=== PATIENT | female | born 1950 | race Two or more races ===

== ENCOUNTER 2024-02-18 21:28 | Inpatient (IN) | payer MEDICARE, MEDICAID ==
[~2024-02-18] VITALS: Ht 162.6 cm; Wt 74.8 kg
[2024-02-18 21:36] VITALS: PULSE 65; RESP 17; O2SAT 100
[2024-02-18 21:46] LABS: Urine Bacteria None Seen /hpf (None Seen)
[2024-02-18 22:03] LABS: Amphetamine Screen, Urine Neg (NEGATIVE); Urine Blood Negative /uL (Negative); Urine Clarity Clear (Clear); Urine Color Light-Yellow (Yellow); Urine Hyaline Cast FEW /lpf (0 - 2); Urine Protein, UAD Negative (Negative); Urine Specific Gravity 1.016 (1.001-1.035); Urine Urobilinogen Normal (Negative); Urine WBC 1 /hpf (0 - 5); Urine pH 6.5 (5.0-9.0)
[2024-02-18 22:04] LABS: Barbiturate Scree,Urine Neg (NEGATIVE); Benzodiazephine Screen, Urine Neg (NEGATIVE); Cannabinoid Screen, Urine Neg (NEGATIVE); Cocaine Screen, Urine Neg (NEGATIVE); Opiate Scree,Urine Neg (NEGATIVE); Phencyclidine Screen, Urine Neg (NEGATIVE)
[2024-02-18 22:19] LABS: Basophils # (auto) 0 10 ^3/uL (0-0.2); Basophils % (auto) 0.3 % (0.0-2.0); Eosinophils # (auto) 0.2 10 ^3/uL (0-0.8); Eosinophils % (auto) 2.9 % (0.0-7.0); Hematocrit 36.6 % (36.0-46.0); Hemoglobin 11.9 g/dL (12.2-16.2); Lymphocytes # (auto) 1.8 10 ^3/uL (0.4-5.4); Lymphocytes % (auto) 21.5 % (10.0-50.0); Mean Corpuscular Hemoglobin 29.3 pg (28.0-32.0); Mean Corpuscular Hgb Conc. 32.6 g/dL (32.0-36.0); Mean Corpuscular Volume 90.1 fL (80.0-100.0); Monocytes # (auto) 0.6 10 ^3/uL (0-1.3); Monocytes % (auto) 6.6 % (0.0-12.0); Neutrophils # (auto) 5.7 10 ^3/uL (1.6-8.6); Neutrophils % (auto) 68.7 % (37.0-80.0); Nucleated Red Blood Cells % 0.1 %; Red Blood Cells 4.06 10^6/uL (4.0-5.20); Red Cell Distribution Width 14.1 % (11.8-14.3); White Blood Cell 8.3 10^3/uL (4.4-10.8)
[2024-02-18 22:36] LABS: Alanine Aminotransferase 11 U/L (7-40); Albumin 4.1 g/dL (3.2-4.8); Alkaline Phosphatase 70 U/L (46-116); Anion Gap 7 (5-15); Aspartate Aminotransferase 15 U/L (13-40); BUN/Creatinine Ratio 16.9 (10.0-20.0); Blood Alcohol < 3.0 mg/dL (<10); Blood Urea Nitrogen 24 mg/dL (9-23); Calcium 9.3 mg/dL (8.5-10.1); Carbon Dioxide 27 mmol/L (20-30); Chloride 104 mmol/L (98-107); Glucose 240 mg/dL (74-106); Potassium 3.9 mmol/L (3.5-5.1); Sodium 138 mmol/L (136-145)
[2024-02-18 22:37] LABS: Bilirubin, Total 0.4 mg/dL (0.2-1.0); Total Protein 6.4 g/dL (5.7-8.2)
[2024-02-18 22:39] LABS: Partial Thromboplastin Time 22.7 SEC (24.5-34.5); Prothrombin Time 10.6 sec (9.3-11.8)
[2024-02-19] MEDS ORDERED: ONDANSETRON HCL 4 MG/2 ML VIAL IV PRN (03:00)
[2024-02-19] MEDS ORDERED: DEXTROSE (50%) 50ML SYRG IV PRN (03:00)
[2024-02-19] MEDS ORDERED: HYDROcodone-ACET 5/325MG TAB PO PRN (03:00)
[2024-02-19] MEDS ORDERED: hydrALAZINE HCL 20 MG/ML VL IV PRN (03:00)
[2024-02-19] MEDS: ASPirin 81 mg TAB PO ONE (03:35)
[2024-02-19 03:49] LABS: Basophils # (auto) 0 10 ^3/uL (0-0.2); Basophils % (auto) 0.5 % (0.0-2.0); Eosinophils # (auto) 0.2 10 ^3/uL (0-0.8); Eosinophils % (auto) 2.8 % (0.0-7.0); Hematocrit 36.2 % (36.0-46.0); Hemoglobin 11.9 g/dL (12.2-16.2); Lymphocytes # (auto) 2.6 10 ^3/uL (0.4-5.4); Lymphocytes % (auto) 32.3 % (10.0-50.0); Mean Corpuscular Hgb Conc. 32.9 g/dL (32.0-36.0); Monocytes # (auto) 0.7 10 ^3/uL (0-1.3); Monocytes % (auto) 8.4 % (0.0-12.0); Neutrophils # (auto) 4.5 10 ^3/uL (1.6-8.6); Red Blood Cells 4.11 10^6/uL (4.0-5.20); Red Cell Distribution Width 14.5 % (11.8-14.3)
[2024-02-19] MEDS ORDERED: MORPHINE SULFATE INJ 2 MG/ml SYRG IV PRN (04:15)
[2024-02-19] MEDS ORDERED: NITROGLYCERIN 0.4 MG SL TAB SL PRN (04:15)
[2024-02-19 04:32] LABS: Alkaline Phosphatase 65 U/L (46-116); Anion Gap 7 (5-15); Aspartate Aminotransferase 13 U/L (13-40); BUN/Creatinine Ratio 23.3 (10.0-20.0); Blood Urea Nitrogen 27 mg/dL (9-23); Calcium 9.7 mg/dL (8.7-10.4); Carbon Dioxide 27 mmol/L (20-30); Chloride 106 mmol/L (98-107); Glucose 123 mg/dL (74-106); Potassium 3.6 mmol/L (3.5-5.1); Sodium 140 mmol/L (136-145)
[2024-02-19 04:33] LABS: Bilirubin, Total 0.4 mg/dL (0.2-1.0); Total Protein 6.2 g/dL (5.7-8.2)
[2024-02-19 04:40] LABS: Alanine Aminotransferase < 9 U/L (7-40)
[2024-02-19] MEDS: SODIUM CHLOR 0.9% PF (SALINE LOCK) 10ML VIAL/SYR IV SCH (06:13)
[2024-02-19] MEDS: InsuLIN REG 1unit/0.01ml Soln (100units/ml) SC SCH ×2 (07:00→21:23)
[2024-02-19] MEDS: ACCU-CHEK COMFORT CURVE STRIP VI SCH (07:01)
[2024-02-19 09:32] VITALS: BP 112/44; PULSE 62; RESP 20; TEMP 98.3; O2SAT 98
[2024-02-19] MEDS: ASPirin 81 mg TAB PO SCH (11:46)
[2024-02-19] MEDS ORDERED: LOSA100T25 PO (12:59)
[2024-02-19] MEDS ORDERED: SITA50TA28 PO (12:59)
[2024-02-19] MEDS ORDERED: CYAN-17 PO (12:59)
[2024-02-19] MEDS ORDERED: GENT0.1C3 EX (12:59)
[2024-02-19] MEDS ORDERED: EMPA1TAB3 PO (12:59)
[2024-02-19] MEDS ORDERED: GABA-1250 PO (12:59)
[2024-02-19] MEDS ORDERED: FOLITAB22 PO (12:59)
[2024-02-19] MEDS ORDERED: CHOL500046 PO (12:59)
[2024-02-19 13:00] VITALS: BP 130/42; PULSE 62; RESP 18; TEMP 98; O2SAT 99
[2024-02-19 17:33] VITALS: BP 130/53; PULSE 63; RESP 20; TEMP 98.6; O2SAT 95
[2024-02-19 20:30] VITALS: PULSE 60; PULSE 64; RESP 18; O2SAT 100
[2024-02-19 21:01] VITALS: BP 127/55; PULSE 64; RESP 18; TEMP 98.1; O2SAT 100
[2024-02-20] VITALS (9 sets, daily range): BP systolic 115–142; BP diastolic 47–69; PULSE 61–68; RESP 17–20; TEMP 97.4–98.2; O2SAT 92–98
[2024-02-20 06:20] LABS: Basophils # (auto) 0 10 ^3/uL (0-0.2); Basophils % (auto) 0.3 % (0.0-2.0); Eosinophils # (auto) 0.3 10 ^3/uL (0-0.8); Hematocrit 38.4 % (36.0-46.0); Hemoglobin 12.8 g/dL (12.2-16.2); Mean Corpuscular Hgb Conc. 33.5 g/dL (32.0-36.0); Mean Corpuscular Volume 89.5 fL (80.0-100.0); Monocytes # (auto) 0.6 10 ^3/uL (0-1.3); Neutrophils # (auto) 5.1 10 ^3/uL (1.6-8.6); Neutrophils % (auto) 62.7 % (37.0-80.0); Red Blood Cells 4.29 10^6/uL (4.0-5.20); Red Cell Distribution Width 14.1 % (11.8-14.3); White Blood Cell 8.1 10^3/uL (4.4-10.8)
[2024-02-20 06:42] LABS: Albumin 4.2 g/dL (3.2-4.8); Alkaline Phosphatase 70 U/L (46-116); Anion Gap 8 (5-15); Aspartate Aminotransferase 12 U/L (13-40); Blood Urea Nitrogen 24 mg/dL (9-23); Carbon Dioxide 26 mmol/L (20-30); Chloride 105 mmol/L (98-107); Glucose 154 mg/dL (74-106); Potassium 3.9 mmol/L (3.5-5.1); Sodium 139 mmol/L (136-145)
[2024-02-20 06:43] LABS: Alanine Aminotransferase < 9 U/L (7-40); Bilirubin, Total 0.4 mg/dL (0.2-1.0); Phosphorus 3.7 mg/dL (2.4-5.1); Total Protein 6.7 g/dL (5.7-8.2)
[2024-02-20] MEDS ORDERED: LORazepam 2MG/ML-1ML VIAL IV PRN (19:30)
[2024-02-20 19:51] LABS: LDL Cholesterol 74 mg/dL (< 100); Triglycerides 119 mg/dL (< 150)
[2024-02-20 19:53] LABS: Cholesterol 168 mg/dL (< 200); HDL Cholesterol 69 mg/dL (40-59)
[2024-02-20] MEDS: ACETAMINOPHEN 325 MG TAB PO PRN (21:13)
[2024-02-20 22:31] LABS: Urine Bacteria FEW /hpf (None Seen); Urine Blood 3+ /uL (Negative); Urine Budding Yeast OCCASIONAL /hpf (None Seen); Urine Clarity Clear (Clear); Urine Color Light-Yellow (Yellow); Urine Protein, UAD Negative (Negative); Urine Specific Gravity 1.019 (1.001-1.035); Urine Urobilinogen Normal (Negative); Urine WBC 9 /hpf (0 - 5); Urine pH 5.5 (5.0-9.0)
[2024-02-20 22:41] LABS: Protein, Urine 16.3 mg/dL (0.0-11.9)
[2024-02-20 22:44] LABS: Creatinine, Urine 48.92 mg/dL (30.0-125.0)
[2024-02-21] VITALS (7 sets, daily range): BP systolic 120–147; BP diastolic 50–89; PULSE 60–65; RESP 18–19; TEMP 97.9–98.7; O2SAT 95–97
[2024-02-21 11:40] LABS: Chloride 102 mmol/L (98-107); Potassium 3.8 mmol/L (3.5-5.1); Sodium 138 mmol/L (136-145)
[2024-02-21 11:41] LABS: Anion Gap 7 (5-15); Carbon Dioxide 29 mmol/L (20-30)
[2024-02-21 11:42] LABS: Calcium 9.9 mg/dL (8.5-10.1)
[2024-02-21 11:47] LABS: BUN/Creatinine Ratio 21.6 (10.0-20.0); Blood Urea Nitrogen 19 mg/dL (9-23); Glucose 182 mg/dL (74-106)
[2024-02-21] MEDS: DOCUSATE SOD 100 MG CAP PO PRN (21:07)
[2024-02-22 01:27] VITALS: BP 114/51; PULSE 65; RESP 18; TEMP 98.4; O2SAT 99
[2024-02-22 05:00] VITALS: BP 106/64; PULSE 60; RESP 19; TEMP 98.7; O2SAT 94
[2024-02-22 07:08] LABS: Anion Gap 10 (5-15); Carbon Dioxide 25 mmol/L (20-30); Chloride 102 mmol/L (98-107); Potassium 3.7 mmol/L (3.5-5.1); Sodium 137 mmol/L (136-145)
[2024-02-22 07:14] LABS: Glucose 152 mg/dL (74-106)
[2024-02-22 07:25] LABS: BUN/Creatinine Ratio 24.7 (10.0-20.0); Blood Urea Nitrogen 22 mg/dL (9-23)
[2024-02-22 08:00] VITALS: PULSE 63
[2024-02-22 09:00] VITALS: BP 133/62; PULSE 63; RESP 20; TEMP 98.3; O2SAT 94
== END 2024-02-22 19:30 | disposition home or self-care (01) | DRG 682 ==
LOC: EDBD 21:28 → ER 21:32 → TELE 02-19 04:04 → TELE-EAST 02-19 09:02 → TELE-E-ADS 02-22 15:24
PROVIDERS: ADMIT Nurse Practitioner Family; ATTEND Family Medicine
DX: N17.0 Acute kidney failure with tubular necrosis (principal); G93.41 Metabolic encephalopathy; I69.351 Hemiplegia and hemiparesis following cerebral infarction affecting right dominant side; E44.0 Moderate protein-calorie malnutrition; I69.354 Hemiplegia and hemiparesis following cerebral infarction affecting left non-dominant side; E86.0 Dehydration; E11.65 Type 2 diabetes mellitus with hyperglycemia; N18.31 Chronic kidney disease, stage 3a; E11.22 Type 2 diabetes mellitus with diabetic chronic kidney disease; I12.9 Hypertensive chronic kidney disease with stage 1 through stage 4 chronic kidney disease, or unspecified chronic kidney disease; I25.10 Atherosclerotic heart disease of native coronary artery without angina pectoris; Z88.0 Allergy status to penicillin; Z79.899 Other long term (current) drug therapy; Z79.82 Long term (current) use of aspirin; Z83.3 Family history of diabetes mellitus; Z82.49 Family history of ischemic heart disease and other diseases of the circulatory system; Z80.0 Family history of malignant neoplasm of digestive organs; Z95.0 Presence of cardiac pacemaker; I25.2 Old myocardial infarction; Z68.28 Body mass index [BMI] 28.0-28.9, adult
CPT/HCPCS: 36415; 70450; 70551; 71045; 80048; 80053; 80061; 80307; 80320; 81001; 82140; 82570; 82962; 83605; 83880; 84100; 84156; 84300; 84484; 85025; 85379; 85610; 85730; 87040; 93005; 93970; 95819; G0378; J1815